=== PATIENT | male | born 1950 | race African-American/Black ===

== ENCOUNTER 2018-09-03 | Observation (INO) ==
[2018-09-03 02:47] LABS: Baso # (Auto) 0.1 th/mm3 (0.0-0.2); Baso % (Auto) 1.1 % (0.0-2.0); Eos # (Auto) 0.8 th/mm3 (0.0-0.4); Eos % (Auto) 6.3 % (0.0-4.0); Hematocrit 41.5 % (39.0-51.0); Hemoglobin 13.9 gm/dL (13.0-17.0); Lymph # (Auto) 3.1 th/mm3 (1.0-4.8); Lymph % (Auto) 24.7 % (9.0-44.0); Mean Corpuscular HGB Conc 33.5 % (32.0-36.0); Mean Corpuscular Hemoglobin 26.6 pg (27.0-34.0); Mean Corpuscular Volume 79.4 fL (80.0-100.0); Mean Platelet Volume 8.8 fL (7.0-11.0); Mono # (Auto) 0.7 th/mm3 (0.0-0.9); Mono % (Auto) 5.6 % (0.0-8.0); Neut # (Auto) 7.7 th/mm3 (1.8-7.7); Neut % (Auto) 62.3 % (16.0-70.0); Platelet Count 213 th/mm3 (150-450); Red Blood Count 5.22 mil/mm3 (4.50-5.90); Red Cell Distribution Width 14.4 % (11.6-17.2); White Blood Count 12.3 th/mm3 (4.0-11.0)
--- NOTE | 2018-09-03 03:01 | XR ---
EXAM DATE: 09/03/2018 2:56 AM EST AGE/SEX: 68 years / Male INDICATIONS: Chest pain. CLINICAL DATA: This is the patient's initial encounter. Patient reports that signs and symptoms have been present for 1 day and indicates a pain score of 8/10. MEDICAL/SURGICAL HISTORY: None. None. COMPARISON: No prior exams available for comparison. FINDINGS: A single AP view of the chest demonstrates the lungs to be symmetrically aerated without evidence of mass, infiltrate or effusion. The cardiomediastinal contours are unremarkable. Osseous structures a re intact. CONCLUSION: No acute cardiopulmonary disease demonstrated. Electronically signed by: Rodrigo Ramsey MD Board Certified Radiologist 09/03/2018 3:00 AM EST
[2018-09-03 03:06] LABS: Alkaline Phosphatase 80 U/L (45-117); Total Protein 6.8 g/dL (6.4-8.2)
[2018-09-03 03:10] LABS: Alanine Aminotransferase 23 U/L (12-78); Albumin 3.4 g/dL (3.4-5.0); Anion Gap 10 meq/L (5-15); Aspartate Aminotransferase 20 U/L (15-37); Blood Urea Nitrogen 16 mg/dL (7-18); Calcium 8.7 mg/dL (8.5-10.1); Carbon Dioxide 24.9 meq/L (21.0-32.0); Chloride 106 meq/L (98-107); Glomerular Filtration Rate 80 mL/min (>89); Glucose,Random 121 mg/dL (74-106); Potassium 3.7 meq/L (3.5-5.1); Sodium 141 meq/L (136-145)
--- NOTE | 2018-09-03 03:21 | ED ---
HPI General Chief Complaint: Shortness of Breath/Dyspnea Stated Complaint: Diff breathing Time Seen by Provider: 09/03/18 01:54 Source: patient Mode of arrival: ambulatory Limitations: no limitations History of Present Illness HPI narrative: 68-year-old male came to the emergency room with history of substernal chest pain on and off for past 2-3 weeks. Patient has been attributing this to gas. He has been taking Tums but it has not been helping. Last night the pain got severe which woke him up from sleep. It made him short of breath as well. Because it was not subsiding he asked his to bring him to the emergency room. No aggravating or relieving factors identified. No radiation of the pain. Patient has not had this kind of pain prior to these 2- 3 weeks. He has history of diabetes and hypertension. He is not a smoker. No prior history of coronary artery disease. No prior evaluation for coronary artery disease. Vital signs were stable. Patient says that while he was sitting in the waiting room his pain slowly subsided. Currently is 0 out of 10. It was burning in quality. Related Data Home Medications Medication Instructions Recorded Confirmed lisinopril 2.5 mg PO DAILY 09/03/18 09/03/18 metaxalone 100 mg PO DAILY 09/03/18 09/03/18 metformin 1,000 mg PO BID 09/03/18 09/03/18 ranitidine HCl 150 mg PO DAILY 09/03/18 09/03/18 Allergies Allergy/AdvReac Type Severity Reaction Status Date / Time No Known Allergies Allergy Verified 09/03/18 00:06 Review of Systems ROS: all other systems reviewed are negative [facility] Medical History Medical History Back pain (Acute) Hyperlipidemia (Acute) Hypertension (Acute) Osteoarthritis (Acute) Type 2 diabetes mellitus (Acute) Surgical History Surgical History S/P ACL repair (Acute) Social History Social History Substance History: No History of Abuse Second Hand Smoke Exposure: No Smoking Status: Never smoker How Often Do You Have a Drink Containing Alcohol: Never Recent Travel in [facility] within the Last 8 Weeks: No Recent Out of Country Travel within the Last 8 Weeks: No Immunization History Tetanus Immunization: <5 Years Exam Narrative Exam Narrative: GENERAL: Awake, alert, no obvious distress SKIN: Focused skin assessment warm/dry. HEAD: Atraumatic. Normocephalic. EYES: Pupils equal and round. No scleral icterus. No injection or drainage. ENT: No nasal bleeding or discharge. Mucous membranes pink and moist. NECK: Trachea midline. No JVD. CARDIOVASCULAR: Regular rate and rhythm. No murmur appreciated. RESPIRATORY: No accessory muscle use. Clear to auscultation. Breath sounds equal bilaterally. GASTROINTESTINAL: Abdomen soft, non-tender, nondistended. Hepatic and splenic margins not palpable. MUSCULOSKELETAL: No obvious deformities. No clubbing. No cyanosis. No edema. NEUROLOGICAL: Awake and alert. No obvious cranial nerve deficits. Motor grossly within normal limits. Normal speech. PSYCHIATRIC: Appropriate mood and affect; insight and judgment normal. Course Initial Documented Vital Signs Temperature 98.1 F 09/03/18 00:06 Pulse Rate 97 H 09/03/18 00:06 Respiratory Rate 19 09/03/18 00:06 Blood Pressure 152/87 H 09/03/18 00:06 Pulse Oximetry 97 09/03/18 00:06 Last Documented Vital Signs Temperature 97.7 F 09/03/18 08:00 Pulse Rate 87 09/03/18 08:00 Respiratory Rate 16 09/03/18 08:00 Blood Pressure 158/90 H 09/03/18 08:00 Pulse Oximetry 98 09/03/18 08:00 Medical Decision Making MDM Narrative Medical decision making narrative: 3:20 AM blood test results are back and within acceptable limits. Patient was given 2 baby aspirins. Given his risk factors have decided to admit him to the chest pain center to be ruled out for ACS. Patient was informed about this plan and he is acceptable. Medical Screen Exam Complete: Yes Emergency Medical Condition: Yes Lab Data Result diagrams: 09/03/18 02:19 09/03/18 02:19 Lab Results 09/03/18 09/03/18 09/03/18 Range/Units 02:19 02:19 06:10 WBC 12.3 H (4.0-11.0) th/mm3 RBC 5.22 (4.50-5.90) mil/mm3 Hgb 13.9 (13.0-17.0) gm/dL Hct 41.5 (39.0-51.0) % MCV 79.4 L (80.0-100.0) fL MCH 26.6 L (27.0-34.0) pg MCHC 33.5 (32.0-36.0) % RDW 14.4 (11.6-17.2) % Plt Count 213 (150-450) th/mm3 MPV 8.8 (7.0-11.0) fL Neut % (Auto) 62.3 (16.0-70.0) % Lymph % (Auto) 24.7 (9.0-44.0) % Real % (Auto) 5.6 (0.0-8.0) % Eos % (Auto) 6.3 H (0.0-4.0) % Baso % (Auto) 1.1 (0.0-2.0) % Neut # (Auto) 7.7 (1.8-7.7) th/mm3 Lymph # (Auto) 3.1 (1.0-4.8) th/mm3 Real # (Auto) 0.7 (0.0-0.9) th/mm3 Eos # (Auto) 0.8 H (0.0-0.4) th/mm3 Baso # (Auto) 0.1 (0.0-0.2) th/mm3 WBC Differential . Differential Comment Auto diff final Sodium 141 (136-145) meq/L Potassium 3.7 (3.5-5.1) meq/L Chloride 106 (98-107) meq/L Carbon Dioxide 24.9 (21.0-32.0) meq/L Anion Gap 10 (5-15) meq/L BUN 16 (7-18) mg/dL Creatinine 1.11 (0.60-1.30) mg/dL Estimated GFR 80 L (>89) mL/min POC Glucose (68-110) mg/dl Random Glucose 121 H (74-106) mg/dL Calcium 8.7 (8.5-10.1) mg/dL Total Bilirubin 0.3 (0.2-1.0) mg/dL AST 20 (15-37) U/L ALT 23 (12-78) U/L Alkaline Phosphatase 80 (45-117) U/L Total Creatine Kinase 94 (39-308) U/L Troponin I Less than 0.02 L Less than 0.02 L (0.02-0.05) ng/mL Total Protein 6.8 (6.4-8.2) g/dL Albumin 3.4 (3.4-5.0) g/dL 09/03/18 09/03/18 Range/Units 08:21 10:01 WBC (4.0-11.0) th/mm3 RBC (4.50-5.90) mil/mm3 Hgb (13.0-17.0) gm/dL Hct (39.0-51.0) % MCV (80.0-100.0) fL MCH (27.0-34.0) pg MCHC (32.0-36.0) % RDW (11.6-17.2) % Plt Count (150-450) th/mm3 MPV (7.0-11.0) fL Neut % (Auto) (16.0-70.0) % Lymph % (Auto) (9.0-44.0) % Real % (Auto) (0.0-8.0) % Eos % (Auto) (0.0-4.0) % Baso % (Auto) (0.0-2.0) % Neut # (Auto) (1.8-7.7) th/mm3 Lymph # (Auto) (1.0-4.8) th/mm3 Real # (Auto) (0.0-0.9) th/mm3 Eos # (Auto) (0.0-0.4) th/mm3 Baso # (Auto) (0.0-0.2) th/mm3 WBC Differential Differential Comment Sodium (136-145) meq/L Potassium (3.5-5.1) meq/L Chloride (98-107) meq/L Carbon Dioxide (21.0-32.0) meq/L Anion Gap (5-15) meq/L BUN (7-18) mg/dL Creatinine (0.60-1.30) mg/dL Estimated GFR (>89) mL/min POC Glucose 126 H (68-110) mg/dl Random Glucose (74-106) mg/dL Calcium (8.5-10.1) mg/dL Total Bilirubin (0.2-1.0) mg/dL AST (15-37) U/L ALT (12-78) U/L Alkaline Phosphatase (45-117) U/L Total Creatine Kinase 94 (39-308) U/L Troponin I Less than 0.02 L (0.02-0.05) ng/mL Total Protein (6.4-8.2) g/dL Albumin (3.4-5.0) g/dL Imaging Data Radiologist's impression: Chest X-Ray 09/03/18 02:14 CONCLUSION: No acute cardiopulmonary disease demonstrated. ECG Data Attestation: I personally reviewed and interpreted this ECG as follows: Interpretation: Twelve-lead EKG was reviewed by me. Normal sinus rhythm, normal axis, nonspecific ST-T wave changes. Heart rate of 93 bpm. Discharge Plan Discharge Disposition Patient Disposition: ED Admit(ED Internal Use Only) Discharge Condition Condition: Stable Discharge Order Discharge Orders: Discharge Order (Routine); Ordered 09/03/18 Ordered By: Pamela Crandall ED Use Only Admit Order (Routine); Ordered 09/03/18 Ordered By: Bridget Silva Discharge Details Anticipated Discharge Date: 09/03/18 Physicians Team ED Provider: Bridget Silva Primary Care Provider: Rodrigo Aguirre Attending Provider: Lynda Howell ED Status: Left Department Discharge Information Discharge Date/Time: 09/03/18 04:30
[2018-09-03 07:47] LABS: Creatine Kinase 94 U/L (39-308)
--- NOTE | 2018-09-03 08:08 | P.HPCA ---
History of Present Illness Primary Care Physician: Rodrigo Aguirre MD Chief Complaint: Chest pain History of Present Illness: 68-year-old male with history of type 2 diabetes, hypertension, and hyperlipidemia presents emergency room for further evaluation of nonexertional chest pain. Onset 3 weeks ago. Location substernal. In fact he becomes angry when asked about his chest pain, stating "I think its just gas, I am hungry." Characterized as burning. No radiation. Moderate in severity. no associated symptoms of nausea, vomiting, dyspnea, or diaphoresis. No precipitating or factors. No known coronary artery disease. No recent illness, fever, or injury. Past cardiac testing None Social history Known diabetes, hypertension, and hyperlipidemia. No known coronary artery disease. Lifelong non-smoker. No alcohol or recreational drug use. . Retired. Works part-time at his [employer] to "stay busy." Family history Noncontributory for early onset cardiovascular disease - Diagnosis (1) Atypical chest pain (2) Type 2 diabetes mellitus (3) Hypertension Review of Systems All other systems reviewed negative except as stated in HPI PMFSH - History History Provided By: Patient - Medical History Medical History: Medical History (Last Updated 09/04/18 @ 16:55 by RAMO Arevalo) Back pain Hyperlipidemia Hypertension Osteoarthritis Type 2 diabetes mellitus - Surgical History Surgical History: Surgical History (Last Updated 09/04/18 @ 16:55 by RAMO Arevalo) S/P ACL repair (Acute) - Tobacco History Second Hand Smoke Exposure: No Tobacco Use In Past 30 Days: No Smoking Status: Never smoker - Alcohol History How Often Do You Have a Drink Containing Alcohol: Never - Substance Use History Substance History: No History of Abuse - Travel History Recent Travel in the [place] Within the Last 8 Weeks: No Recent Travel Out of the Country Within the Last 8 Weeks: No - Immunization History Tetanus Immunization: <5 Years Medications and Allergies Active Medications: Active Medications Sodium Chloride (Ns Flush) 2 ml IV.FLUSH UNSCH PRN PRN Reason: FLUSH AFTER USING IV ACCESS Sodium Chloride (Ns Flush) 2 ml IV.FLUSH BID EILEEN Sodium Chloride (Ns Flush) 2 ml IV.FLUSH PRN PRN PRN Reason: FLUSH AFTER USING IV ACCESS Allergies Allergy/AdvReac Type Severity Reaction Status Date / Time No Known Allergies Allergy Verified 09/03/18 00:06 Home Medications Medication Instructions Recorded Confirmed Type lisinopril 2.5 mg PO DAILY 09/03/18 09/03/18 History metaxalone 100 mg PO DAILY 09/03/18 09/03/18 History metformin 1,000 mg PO BID 09/03/18 09/03/18 History ranitidine HCl 150 mg PO DAILY 09/03/18 09/03/18 History Exam Vital signs: Vital Signs 09/03/18 00:06 09/03/18 01:35 09/03/18 01:40 Temperature 98.1 F 97.7 F Pulse Rate 97 H 92 H Respiratory Rate 19 15 Blood Pressure 152/87 H 169/80 H Pulse Oximetry 97 98 09/03/18 02:21 09/03/18 03:30 09/03/18 04:00 Temperature 97.6 F Pulse Rate 84 92 H Respiratory Rate 18 18 Blood Pressure 169/80 H 140/74 Pulse Oximetry 99 97 09/03/18 08:00 Temperature 97.7 F Pulse Rate 89 Respiratory Rate 16 Blood Pressure 158/90 H Pulse Oximetry 98 Intake & Output 09/02/18 09/03/18 09/03/18 18:59 06:59 18:59 Weight 86.183 kg Narrative: GENERAL: Alert WN, WD, NAD, obese male HEAD: NC, AT NECK: Supple, no masses, trachea midline CV: RRR, without murmur, rub, gallop, no JVD, S1-S2. Chest wall nontender to palpation. RESP: Clear lungs throughout bilateral, no crackles, wheeze, rhonchi, symmetrical chest rise, nonlabored, able to speak in full sentences ABD: Soft, NT, ND, no masses, positive bowel tones EXT: Pulses +2x4, no dependent edema MS: Normal tone x4 extremities, nontender, no obvious deformities, full range of motion NEURO: Motor strength 5/5, gait WNL PSYCH: A+O x3, pleasant affect, appropriate speech, angry mood, appropriate insight and judgment SKIN: Normal turgor, normal texture, no lesions, no rashes, brisk cap refill, even hair distribution Results 09/03/18 02:19 09/03/18 02:19 Cardiac Enzymes 09/03/18 09/03/18 Range/Units 02:19 06:10 AST 20 (15-37) U/L Troponin I Less than 0.02 L Less than 0.02 L (0.02-0.05) ng/mL CBC 09/03/18 Range/Units 02:19 WBC 12.3 H (4.0-11.0) th/mm3 RBC 5.22 (4.50-5.90) mil/mm3 Hgb 13.9 (13.0-17.0) gm/dL Hct 41.5 (39.0-51.0) % Plt Count 213 (150-450) th/mm3 Neut # (Auto) 7.7 (1.8-7.7) th/mm3 Lymph # (Auto) 3.1 (1.0-4.8) th/mm3 [place] # (Auto) 0.7 (0.0-0.9) th/mm3 Eos # (Auto) 0.8 H (0.0-0.4) th/mm3 Baso # (Auto) 0.1 (0.0-0.2) th/mm3 Comprehensive Metabolic Panel 09/03/18 Range/Units 02:19 Sodium 141 (136-145) meq/L Potassium 3.7 (3.5-5.1) meq/L Chloride 106 (98-107) meq/L Carbon Dioxide 24.9 (21.0-32.0) meq/L BUN 16 (7-18) mg/dL Creatinine 1.11 (0.60-1.30) mg/dL Calcium 8.7 (8.5-10.1) mg/dL AST 20 (15-37) U/L ALT 23 (12-78) U/L Alkaline Phosphatase 80 (45-117) U/L Total Protein 6.8 (6.4-8.2) g/dL Albumin 3.4 (3.4-5.0) g/dL Intake and Output 09/02/18 09/03/18 09/03/18 22:59 06:59 14:59 Other: Weight 86.183 kg - Imaging and Cardiology Imaging: Impressions Chest X-Ray 09/03/18 02:14 CONCLUSION: No acute cardiopulmonary disease demonstrated. EKG interpretations - EKG EKG results cardiology: sinus rhythm, normal axis, normal QRS, normal ST/T Caprini VTE Risk Assessment Caprini VTE Risk Assessment: Moderate/High Risk (score >= 2) Caprini Risk Assessment Model: Point Value = 1 Point Value = 2 Point Value = 3 Point Value = 5 Age 41-60 Minor surgery BMI > 25 kg/m2 Swollen legs Varicose veins or History of unexplained or recurrent spontaneous Oral contraceptives or hormone replacement Sepsis (< 1 month) Serious lung disease, including pneumonia (< 1 month) Abnormal pulmonary function Acute myocardial infarction Congestive heart failure (< 1 month) History of inflammatory bowel disease Medical patient at bed rest Age 61-74 Arthroscopic surgery Major open surgery (> 45 min) Laparoscopic surgery (> 45 min) Malignancy Confined to bed (> 72 hours) Immobilizing plaster cast Central venous access Age >= 75 History of VTE Family history of VTE Factor V Leiden Prothrombin [id number] Lupus anticoagulant Anticardiolipin antibodies Elevated serum homocysteine Heparin-induced thrombocytopenia Other congenital or acquired thrombophilia Stroke (< 1 month) Elective arthroplasty Hip, pelvis, or leg fracture Acute spinal cord injury (< 1 month) Prophylaxis Regimen: Total Risk Factor Score Risk Level Prophylaxis Regimen 0-1 Low Early ambulation 2 Moderate Order ONE of the following: *Sequential Compression Device (SCD) *Heparin 5000 units SQ BID 3-4 Higher Order ONE of the following medications: *Heparin 5000 units SQ TID *Enoxaparin/Lovenox 40 mg SQ daily (WT < 150 kg, CrCl > 30 mL/min) *Enoxaparin/Lovenox 30 mg SQ daily (WT < 150 kg, CrCl > 10-29 mL/min) *Enoxaparin/Lovenox 30 mg SQ BID (WT < 150 kg, CrCl > 30 mL/min) AND/OR *Sequential Compression Device (SCD) 5 or more Highest Order ONE of the following medications: *Heparin 5000 units SQ TID (Preferred with Epidurals) *Enoxaparin/Lovenox 40 mg SQ daily (WT < 150 kg, CrCl > 30 mL/min) *Enoxaparin/Lovenox 30 mg SQ daily (WT < 150 kg, CrCl > 10-29 mL/min) *Enoxaparin/Lovenox 30 mg SQ BID (WT < 150 kg, CrCl > 30 mL/min) AND *Sequential Compression Device (SCD) Assessment and Plan - Assessment (1) Atypical chest pain Code(s): R07.89 - Other chest pain Status: Acute Plan: Admitted to chest pain center. Seen and evaluated by Dr. Lynda Howell. Rule out with 2 sets of EKGs and cardiac enzymes, then proceed with exercise cardiac stress test. If unremarkable, plans to discharge home with follow-up with his primary care provider. (2) Type 2 diabetes mellitus Code(s): E11.9 - Type 2 diabetes mellitus without complications Status: Chronic Plan: Hold oral anti-glycemic's at this time. Resume upon discharge. Encouraged him to discuss with primary care provider restarting statin therapy for diagnosis of diabetes. Records also indicate past diagnosis of hyperlipidemia. (3) Hypertension Code(s): I10 - Essential (primary) hypertension Status: Chronic Plan: Discussed importance of tight blood pressure control. Encouraged following a low-sodium diet. Follow-up the primary care provider (2) Type 2 diabetes mellitus Qualifiers: Chronic kidney disease stage: unspecified stage
[2018-09-03 11:16] LABS: Creatine Kinase 94 U/L (39-308)
--- NOTE | 2018-09-03 16:46 | ECG ---
Date Performed: 09/03/2018 Time Performed: 05:53:05 PTAGE: 68 years EKG: Sinus rhythm INFERIOR MYOCARDIAL INFARCTION ABNORMAL ECG Since PREVIOUS TRACING , no significant change noted PREVIOUS TRACIN05/15/2011 02.46 DOCTOR: Lynda Howell Interpretating Date/Time 09/03/2018 16:45:24
--- NOTE | 2018-09-03 16:51 | TR ---
Date Performed: 09/03/2018 Time Performed: 09:25:39 DOCTOR: Lynda Howell DRUG LIST: CLINICAL HISTORY: REASON FOR TEST: REASON FOR ENDING: OBSERVATION: CONCLUSION: Fidel protocol completed. Stopped sec to exceeding target heart rate and right knee pain. No reprod chest discomfort or dyspnea. Maximum PS=692 % Max HR Achieved=86.0% Max Total BP 132 /78. Exercise Time=3:33. No st segment changes to sugg ischemia. Fair exercise tolerance. Recovery qu ick and unremarkable. COMMENTS: No ischemia
--- NOTE | 2018-09-03 16:57 | ECG ---
Date Performed: 09/03/2018 Time Performed: 01:38:55 PTAGE: 68 years EKG: Sinus rhythm INFERIOR MYOCARDIAL INFARCTION ABNORMAL ECG Since PREVIOUS TRACING , no significant change noted DOCTOR: Lynda Howell Interpretating Date/Time 09/03/2018 16:56:37
== END 2018-09-03 10:59 | disposition home or self-care (01) ==
LOC: NEPE → NEDA → NEPFCDU 04:10
PROVIDERS: ADMIT Internal Medicine Interventional Cardiology; ATTEND Internal Medicine Interventional Cardiology
CPT/HCPCS: 71010; 71045; 80053; 82550; 82948; 82962; 84484; 85025; 93005; 93017; 99285; G0378